=== PATIENT | male | born 2000 | race Asian ===

== ENCOUNTER 2023-04-01 18:42 | Outpatient (RCR) | payer OTHER, SELFPAY | END 2023-04-01 23:59 | disposition home or self-care (01) | LOC: RPT 18:42 | PROVIDERS: ATTENDING PHYSICIAN Family Medicine | DX: M54.32 Sciatica, left side (principal) | CPT/HCPCS: 97010; 97110; 97162 ==

== ENCOUNTER 2023-04-15 18:48 | Outpatient (RCR) | payer OTHER, SELFPAY | END 2023-04-15 23:59 | disposition home or self-care (01) | LOC: RPT 18:48 | PROVIDERS: ATTENDING PHYSICIAN Family Medicine | DX: M54.32 Sciatica, left side (principal); Z73.6 Limitation of activities due to disability | CPT/HCPCS: 97110 ==